=== PATIENT | female | born 1965 | race Hispanic/Latino ===

== ENCOUNTER 2020-01-04 18:09 | Emergency (ER) | payer SELFPAY ==
[2020-01-04] MEDS ORDERED: DIAZEPAM 5 MG TABLET ONE (18:38)
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
[2020-01-04 19:15] LABS: CKMB Creatine Kinase MB 1.8 ng/mL (0.3-3.6); Creatine Phosphokinase 150 U/L (26-192); Troponin (Emerg Dept Use Only) < 0.02 ng/mL (0.0-0.045)
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
[2020-01-04] MEDS ORDERED: ACETAMINOPHEN 325 MG TABLET ONE (19:45)
[2020-01-04 19:56] VITALS: TEMP 98.8
[2020-01-04 19:57] VITALS: BP 152/88; O2SAT 98
--- NOTE | 2020-01-05 06:30 | EKG ---
Test Date: 2020-01-04 Test Time: 19:09:03 Studio Director: JAMARCUS MEASUREMENT RESULTS: Intervals: Rate: 72 SD: 142 QRSD: 84 QT: 370 QTc: 405 [place]: P: 63 SD: 142 QRS: 56 T: 53 INTERPRETIVE STATEMENTS: Normal sinus rhythm Normal ECG No previous ECG available for comparison Electronically Signed On 01-05-20 06:29:40 CDT by Robert Treviño
== END 2020-01-04 19:50 | disposition home or self-care (01) ==
LOC: ER 18:09
DX: R07.9 Chest pain, unspecified (principal); V43.53XA Car driver injured in collision with pick-up truck in traffic accident, initial encounter; Y93.89 Activity, other specified; Y92.410 Unspecified street and highway as the place of occurrence of the external cause; F17.210 Nicotine dependence, cigarettes, uncomplicated
CPT/HCPCS: 36415; 71046; 82550; 82553; 84484; 93005; 99284